=== PATIENT | male | born 1935 | race Caucasian/White ===

== ENCOUNTER 2018-10-12 01:49 | Outpatient (CLI) | payer MEDICARE, BC, SELFPAY ==
--- NOTE | 2018-10-12 07:46 | DI.US_ITS ---
SYMPTOM/DIAGNOSIS: F/U AAA AORTA ULTRASOUND: No prior comparison exams are available. There is an abdominal aortic aneurysm measuring 7.7 by 6.9 by 9.6 cm. in length. A stent is seen in the proximal portion of the aneurysm with two stents seen extending into the iliac arteries. The stents are patent. There is no evidence of leak of the aneurysm. IMPRESSION: Intact aortic stent extending through an abdominal aortic aneurysm. There is no evidence of aneurysmal leak.
== END 2018-10-12 02:09 ==
PROVIDERS: PCP General Practice; Visit Provider General Practice
DX: I71.4 Abdominal aortic aneurysm, without rupture (principal)
CPT/HCPCS: 76775

== ENCOUNTER 2018-10-30 11:41 | Outpatient (CLI) | payer MEDICARE, BC, SELFPAY ==
--- NOTE | 2018-10-30 11:40 | DI.RAD_ITS ---
SYMPTOM/DIAGNOSIS: SOB, LUNG CA, S/P LLL LOBECTOMY PA AND LATERAL CHEST: Comparison is made with 10/31/17. No more recent exams are available for comparison. The patient is status post left lobectomy. There is left lower lobe scarring and volume loss. Surgical clips are noted near the left hilum. A left sided port is seen with the tip in the SVC. The heart is mildly enlarged. The right lung appears clear. IMPRESSION: Changes of left lower lobe lobectomy. No acute abnormality is seen.
[2018-10-30 12:12] LABS: HCT 29.4 % (40.0-50.0); HGB 9.3 g/dL (13.5-17.5); Mean Corp. HGB Concentration 31.6 g/dL (32.0-36.0); Mean Corpuscular Hemoglobin 29.8 pg (27.0-33.0); Mean Corpuscular Volume 94.2 fL (80-95); Mean Platelet Volume 9.1 fL (8.0-11.0); Platelet Count 278 x1000/uL (130-400); RBC 3.12 m/cumm (4.50-6.00); RBC Distribution Width 14.2 % (11.8-14.1); White Blood Cell Count 5.78 k/cumm (4.4-10.8)
[2018-10-30 14:15] LABS: Iron 73 ug/dL (50-175); Total Iron Binding Capacity 398 ug/dL (250-450); Transferrin Sat 18 % (20-55)
[2018-10-30 14:46] LABS: Ferritin 26 ng/mL (8-388)
[2018-10-30 17:13] LABS: NT-proBNP 431 pg/mL
== END 2018-10-30 12:01 ==
PROVIDERS: PCP General Practice; Visit Provider General Practice
DX: R06.02 Shortness of breath (principal); Z90.2 Acquired absence of lung [part of]; Z85.110 Personal history of malignant carcinoid tumor of bronchus and lung
CPT/HCPCS: 36415; 85027; 71046; 82728; 83540; 83550; 83880

== ENCOUNTER 2018-11-06 02:05 | Outpatient (CLI) | payer MEDICARE, BC, SELFPAY ==
[2018-11-06 09:30] LABS: HCT 30.8 % (40.0-50.0); HGB 9.7 g/dL (13.5-17.5); Mean Corp. HGB Concentration 31.5 g/dL (32.0-36.0); Mean Corpuscular Hemoglobin 29.8 pg (27.0-33.0); Mean Corpuscular Volume 94.5 fL (80-95); Platelet Count 296 x1000/uL (130-400); RBC 3.26 m/cumm (4.50-6.00); RBC Distribution Width 14.2 % (11.8-14.1); White Blood Cell Count 6.06 k/cumm (4.4-10.8)
[2018-11-06 10:09] LABS: Iron 117 ug/dL (50-175); Total Iron Binding Capacity 380 ug/dL (250-450); Transferrin Sat 31 % (20-55)
[2018-11-06 10:25] LABS: Ferritin 27 ng/mL (8-388)
== END 2018-11-06 02:25 ==
PROVIDERS: PCP General Practice; Visit Provider General Practice
DX: D64.9 Anemia, unspecified (principal)
CPT/HCPCS: 36415; 85027; 82728; 83540; 83550

== ENCOUNTER 2018-11-20 09:59 | Outpatient (CLI) | payer MEDICARE, BC, SELFPAY ==
--- NOTE | 2018-11-20 09:59 | DI.RAD_ITS ---
SYMPTOMS/DIAGNOSIS: SHORTNESS OF BREATH CHEST X-RAY, FRONTAL AND LATERAL VIEWS: Comparison is 10/30/18. The heart is enlarged but stable. The tip of the indwelling central venous catheter is in good position in the superior vena cava. There is unchanged elevation of the left hemidiaphragm with atelectasis or scarring in the lung base. No focal consolidating infiltrates or effusions are seen. The bones appear intact. IMPRESSION: No change in appearance of the chest x-ray. No acute pulmonary process.
[2018-11-20 10:55] LABS: Abs Immature Grans 0.02 k/cumm (0.0-0.09); Absolute Basophil Count 0.04 k/cumm (0.0-0.2); Absolute Eosinophil Count 0.17 k/cumm (0.0-0.7); Absolute Lymphocyte Count 0.87 k/cumm (1.2-3.4); Absolute Neutrophil Count 4.45 k/cumm (1.2-6.7); Basophils % 0.6; Eosinophils % 2.6; HCT 32.6 % (40.0-50.0); HGB 10.2 g/dL (13.5-17.5); Immature Grans % 0.3; Lymphocytes % 13.1; Mean Corp. HGB Concentration 31.3 g/dL (32.0-36.0); Mean Corpuscular Hemoglobin 29.7 pg (27.0-33.0); Mean Corpuscular Volume 94.8 fL (80-95); Mean Platelet Volume 9.2 fL (8.0-11.0); Monocytes % 16.5; Neutrophils % 66.9; Platelet Count 304 x1000/uL (130-400); RBC 3.44 m/cumm (4.50-6.00); White Blood Cell Count 6.65 k/cumm (4.4-10.8)
[2018-11-20 11:26] LABS: ALT 14 U/L (12-78); AST 11 U/L (15-37); Albumin 3.5 g/dL (3.4-5.0); Alkaline Phosphatase 120 U/L (46-116); BUN 24 mg/dL (7-18); Bilirubin, Total 0.5 mg/dL (0.2-1.0); CREATININE 0.98 mg/dL (0.70-1.30); Calcium 9.1 mg/dL (8.5-10.1); Chloride 99 mmol/L (98-107); Glucose 88 mg/dL (70-100); NT-proBNP 353 pg/mL; Potassium 4.4 mmol/L (3.5-5.1); Sodium 136 mmol/L (136-145); Total Protein 6.7 g/dL (6.4-8.2)
[2018-11-20 11:31] LABS: D-Dimer 1889 ng/mlFEU (<500)
== END 2018-11-20 10:19 ==
PROVIDERS: PCP General Practice; Visit Provider General Practice
DX: R06.02 Shortness of breath (principal); I51.7 Cardiomegaly
CPT/HCPCS: 36415; 80053; 71046; 83880; 85025; 85379

== ENCOUNTER 2018-11-26 00:45 | Outpatient (CLI) | payer MEDICARE, BC, SELFPAY ==
[2018-11-26] MEDS: Normal Saline Flush 10 ML SYR (15:57)
[2018-11-26] MEDS: Omnipaque 350 MG/ML 100 ML BTL IJ (16:15)
--- NOTE | 2018-11-26 16:15 | DI.CT_ITS ---
SYMPTOM/DIAGNOSIS: SOB, ELEVATED D-DIMER CT CHEST: CT angiography of the chest was performed according to protocol. Comparison is 11/07/17 CT angiography was performed with multi slice acquisition and multi planar and 3D reconstruction. There is no evidence of a pulmonary embolus. There is no evidence of a thoracic aortic dissection. There is atherosclerosis of the thoracic aorta. No aneurysmal dilatation is present. Heart size is within normal limits. No significant pericardial effusion is seen. Coronary artery calcifications are present. No significant thoracic adenopathy, pleural effusion or pneumothorax is identified. The patient is status post lower lobectomy. In the left lower lobe along the posterior medial wall there is soft tissue thickening present. This measures 3.x2 x 4 cm. It is isodense to muscle. This is in the area of prior surgery. This may represent scarring. Recurrent mass cannot be excluded. The lungs show evidence of pulmonary emphysema. No focal consolidating infiltrates are seen. The tracheobronchial tree is unremarkable. No acute osseous abnormalities identified. Degenerative changes are seen in the spine. IMPRESSION: 1. No evidence of pulmonary embolus, thoracic aortic dissection or aneurysm. 2. Status post lower lobectomy 3. Soft tissue thickening along the posterior pleural surface in the left lower lobe in the area of prior surgery. This may be post surgical scarring. Recurrent tumor cannot be excluded. PET scan may be considered for further evaluation. 4. Pulmonary emphysematous changes.
--- NOTE | 2018-11-26 16:34 | DI.VRAD_ITS ---
EXAM: CT Angiography Chest With Contrast EXAM DATE/TIME: 11/26/2018 1:44 PM CLINICAL HISTORY: 83 years old, male; Other: SOB, elevated d-dimer TECHNIQUE: Imaging protocol: Axial computed tomographic angiography images of the chest with intravenous contrast using CT angiography protocol. Coronal and sagittal reformatted images were created and reviewed. 3D rendering: MIP reconstructed images were created and reviewed. Radiation optimization: All CT scans at this facility use at least one of these dose optimization techniques: automated exposure control; mA and/or kV adjustment per patient size (includes targeted exams where dose is matched to clinical indication); or iterative reconstruction. Contrast material: OMNIPAQUE 350;Contrast volume: 100 ml;Contrast route: IV; COMPARISON: CT CHEST WITH CONTRAST 11/07/2017 2:05 PM FINDINGS: Pulmonary arteries: Normal. No pulmonary emboli. Aorta: There is severe atherosclerosis of the visualized aorta. Lungs: This is consistent with a history of left lower lobe lobectomy. Pleural space: In the area where there was a 7 cm pleural-based mass in the previous exam of 11/07/2017 , there is mild pleural thickening as well as a 3 x 2 x 4 cm area of tissue that is isodense to skeletal muscle and has a somewhat irregular superior margin. Heart: Unremarkable. No cardiomegaly. No pericardial effusion. Mediastinum: There is prominent elevation of the posterior aspect of the left hemidiaphragm to level of the hilum. Lymph nodes: There are few nonspecific mediastinal lymph nodes. Bones/joints: There is mild spondylosis of the lower thoracic spine. Soft tissues: Unremarkable. IMPRESSION: 1. No evidence of pulmonary emboli. 2. Status post left lower lobe lobectomy. In the area previous mass there is a roughly 3 cm area of abnormal soft tissue density that could just be scarring but recurrence cannot be completely excluded. There are no air bronchograms to suggest this is pneumonia. A PET scan could dilate further if clinically indicated. 3. Severe atherosclerosis Dictated and Authenticated by: Brett Heredia MD. Ordering:SOLEDAD Peterson MD
== END 2018-11-26 01:05 ==
PROVIDERS: PCP General Practice; Visit Provider General Practice
DX: R06.02 Shortness of breath (principal); R79.1 Abnormal coagulation profile; J43.9 Emphysema, unspecified; Z90.2 Acquired absence of lung [part of]; M79.89 Other specified soft tissue disorders
CPT/HCPCS: 71275; J3490

== ENCOUNTER 2018-11-26 14:15 | Outpatient (RCR) | payer MEDICARE, BC, SELFPAY | END 2018-11-28 23:59 | disposition home or self-care (01) | LOC: INF 14:15 | PROVIDERS: PCP General Practice; Visit Provider General Practice | DX: R69 Illness, unspecified (principal) ==

== ENCOUNTER 2018-12-04 11:18 | Outpatient (CLI) | payer MEDICARE, BC, SELFPAY ==
[2018-12-04 11:47] VITALS: PULSE 65; PULSE 75; O2SAT 97; O2SAT 98
== END 2018-12-04 11:38 ==
PROVIDERS: PCP General Practice; Visit Provider Obstetrics & Gynecology
DX: R06.02 Shortness of breath (principal); Z90.2 Acquired absence of lung [part of]; R06.09 Other forms of dyspnea
CPT/HCPCS: 94618